=== PATIENT | female | born 1995 | race Caucasian/White ===

== ENCOUNTER 2020-08-15 22:41 | Emergency (ER) | payer BC ==
[~2020-08-15] VITALS: Ht 165.1 cm; Wt 100.4 kg
[2020-08-15] MEDS ORDERED: ONDANSETRON 2MG/ML, 2ML IVPush ONE (23:00)
[2020-08-15] MEDS ORDERED: SODIUM CHLORIDE FLUSH 10ML SYR IVF ONE (23:00)
[2020-08-15] MEDS ORDERED: SODIUM CHLORIDE 0.9% 1,000ML IVBOLUS ONE (23:00)
[2020-08-15] MEDS ORDERED: ACETAMINOPHEN 325 MG TABLET PO ONE (23:00)
--- NOTE | 2020-08-15 23:10 | NUR ---
EKG COMPLETED BY TECH AND EVALUATED BY ERP. NO ORDERS RECEIVED
--- NOTE | 2020-08-15 23:10 | NUR ---
Patient presents to ER c/o SOB and one syncopal episode this am. Patient states after her syncopal episode, she developed N/V/D. Patient denies CP. Patient is in NAD. Respirations even and unlabored.
[2020-08-15] MEDS ORDERED: ACETAMINOPHEN 325 MG TABLET ONE (23:14)
[2020-08-15] MEDS ORDERED: PLEASE ENTER HEIGHT AND WEIGHT MC SCH (23:30)
[2020-08-15 23:37] LABS: ALANINE AMINOTRANSFERASE 22 U/L (12-78); ALBUMIN 3.6 g/dL (3.4-5.0); ANION GAP 10 mmol/L (5-15); CALCIUM 8.7 mg/dL (8.5-10.1); CHLORIDE 107 mmol/L (98-107)
[2020-08-15 23:38] LABS: MEAN CORPUSCULAR HEMOGLOBIN 31.5 pg (27.0-34.8); MEAN CORPUSCULAR HGB CONC 34.3 g/dL (32.4-35.8); MEAN PLATELET VOLUME 8.7 fL (7.4-10.4); PLATELET COUNT 246 x10^3/uL (130-400); RED CELL DISTRIBUTION WIDTH 12.7 % (9.6-15.2)
[2020-08-15 23:41] LABS: ALKALINE PHOSPHATASE 46 U/L (45-117); BILIRUBIN,TOTAL 0.5 mg/dL (0.2-1.0); TOTAL PROTEIN 7.3 g/dL (6.4-8.2)
[2020-08-16 00:02] LABS: BANDS%(MANUAL) 10 % (0-7); LYMPHS% (MANUAL) 4 % (22-44); MD YES; MONOS% (MANUAL) 1 % (2-9); MYELOCYTES% (MANUAL) 1 % (0-0); SEGS% (MANUAL) 84 % (42-75)
[2020-08-16 00:04] LABS: ANISOCYTOSIS 1+; PMNS WITH VACUOLES 1+
[2020-08-16 00:05] LABS: <PLATELET ESTIMATE> ADEQUATE; <PLT MORPHOLOGY> NORMAL PLT MORPH
[2020-08-16] MEDS ORDERED: ONDANSETRON 2MG/ML, 2ML ONE (00:22)
[2020-08-16 00:37] LABS: MICROSCOPIC INDICATED
--- NOTE | 2020-08-16 00:51 | NUR ---
TASK RN: NS infusing, pt reports she has a headache and is still feeling nauseous.
--- NOTE | 2020-08-16 00:53 | NUR ---
TASK RN: Dr. Dawn at bedside.
[2020-08-16] MEDS ORDERED: KETOROLAC 30 MG/1 ML IVPush ONE (01:00)
[2020-08-16] MEDS ORDERED: METOCLOPRAMIDE 5 MG/ML, 2ML IVPush ONE (01:00)
[2020-08-16] MEDS ORDERED: SODIUM CHLORIDE 0.9% 1,000ML IVBOLUS ONE (01:00)
[2020-08-16] MEDS ORDERED: KETOROLAC 30 MG/1 ML ONE (01:05)
[2020-08-16] MEDS ORDERED: METOCLOPRAMIDE 5 MG/ML, 2ML ONE (01:05)
--- NOTE | 2020-08-16 01:20 | NUR ---
Patient to CT.
[2020-08-16 02:50] VITALS: BP 115/77
[2020-08-16] MEDS ORDERED: CEFTRIAXONE PMX 1GM/50ML 50 ML ONE (02:52)
[2020-08-16] MEDS ORDERED: CEFTRIAXONE PMX 1GM/50ML 50 ML IV ONE (03:00)
--- NOTE | 2020-08-16 03:18 | NUR ---
Discharge instructions given. All questions and concerns addressed. Patient ambulatory with a steady gait. Belongings with patient.
[2020-08-16] MEDS ORDERED: OMNIPAQUE 350 MG/ML, 100ML BOTTLE ONE (05:47)
== END 2020-08-16 03:23 | disposition home or self-care (01) ==
LOC: ED 08-16 00:50
DX: K52.9 Noninfective gastroenteritis and colitis, unspecified (principal); Z20.822 Contact with and (suspected) exposure to COVID-19; J06.9 Acute upper respiratory infection, unspecified; R10.84 Generalized abdominal pain; D72.825 Bandemia; B34.9 Viral infection, unspecified; R55 Syncope and collapse; R00.0 Tachycardia, unspecified; R11.2 Nausea with vomiting, unspecified; R51.9 Headache, unspecified; Z91.011 Allergy to milk products
CPT/HCPCS: 71045; 71260; 74177; 80053; 81001; 84703; 85025; 85379; 87040; 87635; 93005; 96361; 96365; 96375; 99285; J0696; J1885; J2405; J2765; J7030; Q9967